=== PATIENT | male | born 1980 | race Two or more races ===

== ENCOUNTER 2017-09-25 08:06 | Day surgery (SDC) | payer OTHER ==
[2017-09-25] VITALS (7 sets, daily range): BP systolic 136–158; BP diastolic 99–106
[~2017-09-25] VITALS: Ht 175.3 cm; Wt 120.2 kg
[2017-09-25] MEDS ORDERED: ASPIR 8181 MG ORAL (09:55)
[2017-09-25] MEDS ORDERED: FUROSEMIDE40 MG ORAL (09:55)
[2017-09-25] MEDS ORDERED: DILTIAZEM ER120 MG PO (09:55)
[2017-09-25] MEDS ORDERED: METFORMIN HCL500 M1 ORAL (09:55)
[2017-09-25] MEDS ORDERED: SILDENAFIL20 MG ORAL (09:55)
[2017-09-25] MEDS ORDERED: GLIPIZIDE5 MG ORAL (09:55)
[2017-09-25] MEDS ORDERED: Propofol 200mg/20ml IV ONE (11:00)
[2017-09-25] MEDS ORDERED: LR 1000ml ONE (11:00)
[2017-09-25] MEDS ORDERED: Lidocaine 1% MPF 10mg/ml 5ml ONE (11:00)
--- NOTE | 2017-09-25 11:04 | Short Stay Surgery H&P ---
History of Present Illness History of Present Illness Chief Complaint Abdominal pains/GERDs HPI Nelson Scanlon is a 37 year old male who was admitted on for Abdominal Pain/GERDs Patient History Allergies: Coded Allergies: No Known Allergies (Unverified , 09/24/17) PAST MEDICAL HISTORY: (1) Hypertension (2) Diabetes (3) CHF (congestive heart failure) (4) Cardiomyopathy Medication History Scheduled Aspirin* (Aspir 81*), 81 MG ORAL DAILY, (Reported) Diltiazem Hcl (Diltiazem Er), 120 MG PO DA, (Reported) Furosemide* (Lasix*), 40 MG ORAL DAILY, (Reported) Glipizide* (Glipizide*), 5 MG ORAL DAILY, (Reported) Metformin Hcl* (Metformin Hcl*), 500 MG ORAL TWICE A DAY, (Reported) Sildenafil Citrate (Sildenafil), 20 MG ORAL DA, (Reported) Review of Systems Cardiovascular: Reports: CHF Respiratory: Reports: no symptoms Skeletal: Reports: trauma Gastrointestinal: Reports: gastro esophageal reflux disease Genitourinary: Reports: no symptoms Neurologic: Reports: no symptoms Endocrine: Reports: diabetes - type 2 Hematologic: Reports: no symptoms Physical Exam Vital Signs Last Vital Signs Date Time Temp Pulse Resp B/P (MAP) Pulse Ox O2 Delivery O2 Flow Rate FiO2 09/25/17 10:10 97.7 102 20 145/106 (119) 97 97.7 09/25/17 09:46 Room Air Skin: normal HENT: normal Heart: normal Lungs: normal Abdomen: abnormal Extremities: normal Genitourinary: normal Plan Plan of Care Upper GI endoscopy and biopsy Preop Interventions None Summary of Findings See the reports Attestation Are the patient's medical conditions optimized for surgery? Attestation Response: yes Ciera Gandhi MD Sep 25, 2017 11:04
--- NOTE | 2017-09-25 11:05 | Pre-Procedure Note/Attestation ---
Pre-Procedure Note/Attestation Complete Prior to Procedure Planned Procedure: left Procedure Narrative: Examination of the upper GI tract via endoscopy Indications for Procedure Pre-Operative Diagnosis: R/O Peptic Ulcer/gastritis Attestation I attest that I discussed the nature of the procedure; its benefits; risks and complications; and alternatives (and the risks and benefits of such alternatives ), prior to the procedure, with the patient (or the patient's legal sales representative livestock). I attest that, if there was a reasonable possibility of needing a blood transfusion, the patient (or the patient's legal sales representative livestock) was given the [facility] standardized written summary, pursuant to the Mauro Lockett Blood Safety Act ([place] Health and Safety Code # 1645, as amended). I attest that I re-evaluated the patient just prior to the surgery and that there has been no change in the patient's H&P, except as documented below: Ciera Gandhi MD Sep 25, 2017 11:05
--- NOTE | 2017-09-25 11:06 | Pre-Procedure Note/Attestation ---
Pre-Procedure Note/Attestation Complete Prior to Procedure Planned Procedure: left Procedure Narrative: Examiantion of the upper GI tract via endoscopy Indications for Procedure Pre-Operative Diagnosis: R/O Peptic Ulcer/gastritis Attestation I attest that I discussed the nature of the procedure; its benefits; risks and complications; and alternatives (and the risks and benefits of such alternatives ), prior to the procedure, with the patient (or the patient's legal field service representative). I attest that, if there was a reasonable possibility of needing a blood transfusion, the patient (or the patient's legal field service representative) was given the [facility] standardized written summary, pursuant to the Mauro Tennille Blood Safety Act ([place] Health and Safety Code # 1645, as amended). I attest that I re-evaluated the patient just prior to the surgery and that there has been no change in the patient's H&P, except as documented below: Ciera Gandhi MD Sep 25, 2017 11:05
[2017-09-25] MEDS ORDERED: LR 1000ml 1,000 ML IVLG SCH (11:07)
[2017-09-25] MEDS ORDERED: Labetalol 5mg/ml 20ml vial IV PRN (11:15)
[2017-09-25] MEDS ORDERED: Midazolam 2mg/2ml Inj IVP PRN (11:15)
[2017-09-25] MEDS ORDERED: fentaNYL 100 mcg/2 mL IV PRN (11:15)
[2017-09-25] MEDS ORDERED: DiphenhydrAMINE 50mg/ml Inj IVP PRN (11:15)
[2017-09-25] MEDS ORDERED: Atropine Inj 1mg/10ml Syr IV PRN (11:15)
--- NOTE | 2017-09-25 11:27 | Endoscopy Procedure Note ---
Endoscopy Procedure Note General Indication for Procedure: Abdominal pains and GERDS Procedures Performed: EGD - Completely normal Upper GI endoscopy. Biopsy was obtained per random from gastric body. Specimen: yes Pt Tolerated Procedure Well: Yes Estimated Blood Loss: none Anesthesia Anesthesiologist: Dr. Arteaga Anesthesia: moderate sedation Medications Medication Given: see anesthesia record Inserted Devices Implant(s) used?: No Quality Quality of Bowel Preparation: Excellent Was there any complications?: No GI Core Measures 50 yrs or older w/o bx or poly: Not Applicable 10yrs. F/U not recommended: Not Applicable If not recommended, why?: Med reason:<3 yrs.: System Reason:<3 yrs.: Ciera Gandhi MD Sep 25, 2017 11:27
--- NOTE | 2017-09-25 11:29 | Discharge Instructions ---
Discharge Instructions Discharge Instructions Follow up with: Visit the doctor after 2 weeks in the office. For Congestive Heart Failure Reminder Report to your physician any weight gain of 5 pounds or more in one week. Ciera Gandhi MD Sep 25, 2017 11:29
--- NOTE | 2017-09-25 11:51 | Endoscopy Procedure Note ---
Endoscopy Procedure Note General Indication for Procedure: Abdominal pains Procedures Performed: colonoscopy - Completely normal total colonoscopy. Specimen: none Pt Tolerated Procedure Well: Yes Estimated Blood Loss: none Anesthesia Anesthesiologist: Dr. Arteaga Anesthesia: moderate sedation Medications Medication Given: see anesthesia record Inserted Devices Implant(s) used?: No Quality Quality of Bowel Preparation: Fair Did scope reach the cecum?: Yes GI Core Measures 50 yrs or older w/o bx or poly: No 10yrs. F/U not recommended: No Med reason:<3 yrs.: System Reason:<3 yrs.: Ciera Gandhi MD Sep 25, 2017 11:51
--- NOTE | 2017-09-25 12:15 | Anethesia Preoperative Eval ---
Anesthesia Pre-op PMH/ROS General Date of Evaluation: Sep 25, 2017 Time of Evaluation: 10:58 Anesthesiologist: rula ASA Score: ASA 4 Mallampati Score Class I : Soft palate, uvula, fauces, pillars visible Class II: Soft palate, uvula, fauces visible Class III: Soft palate, base of uvula visible Class IV: Only hard plate visible Mallampati Classification: Class II Surgeon: pito Diagnosis: abdominal pain, gerd Surgical Procedure: egd/colonoscopy Anesthesia History: none Social History: smoking - nonsmoker Family History: no anesthesia problems Allergies: Coded Allergies: No Known Allergies (Unverified , 09/24/17) Medications: see eMAR Past Medical History Cardiovascular: Reports: HTN, other - cardiomegaly Endocrine: Reports: DM Other: obesity Anesthesia Pre-op Phys. Exam Physician Exam Last Vital Signs Date Time Temp Pulse Resp B/P (MAP) Pulse Ox O2 Delivery O2 Flow Rate FiO2 09/25/17 12:07 91 20 141/100 100 Simple Mask 8 09/25/17 11:57 97 97.0 Constitutional: NAD Neurologic: CN 2-12 intact Cardiovascular: RRR Respiratory: CTA Gastrointestinal: S/NT/ND Airway Exam Mallampati Score: Class II MO: full Neck: short TMD: 2fb ROM: full Teeth: intact Anesthesia Pre-op A/P Risk Assessment & Plan Assessment: asa4 Plan: mac Status Change Before Surgery: No Pre-Antibiotics Drug: Luzmaria Buckley MD Sep 25, 2017 12:15
--- NOTE | 2017-09-25 12:16 | Immediate Post-Op Evaluation ---
Immediate Post-Op Evalulation Immediate Post-Op Evalulation Procedure: egd/colonoscopy/bx Date of Evaluation: Sep 25, 2017 Time of Evaluation: 12:09 IV Fluids: 550ml lr Blood Products: none Estimated Blood Loss: negligible Blood Pressure Systolic: 142 Blood Pressure Diastolic: 104 Pulse Rate: 94 Respiratory Rate: 18 O2 Sat by Pulse Oximetry: 97 Temperature (Fahrenheit): 97.8 Pain Score (1-10): 0 Nausea: No Vomiting: No Complications none Patient Status: awake, reacts, patent Hydration Status: adequate Drug: Luzmaria Buckley MD Sep 25, 2017 12:16
--- NOTE | 2017-09-25 12:17 | 48 Hour Post Anesthesia Eval ---
Post Anesthesia Evaluation Procedure: egd/colonoscopy/bx Date of Evaluation: Sep 25, 2017 Time of Evaluation: 12:16 Blood Pressure Systolic: 145 0: 99 Pulse Rate: 95 Respiratory Rate: 18 Temperature (Fahrenheit): 97.8 O2 Sat by Pulse Oximetry: 97 Airway: patent Nausea: No Vomiting: No Pain Intensity: 0 Hydration Status: adequate Cardiopulmonary Status: stable Mental Status/LOC: patient returned to baseline Post-Anesthesia Complications: none Follow-up care needed: N/A Luzmaria Rollins MD Sep 25, 2017 12:16
--- NOTE | 2017-09-25 17:30 | Operative Note - Dictated ---
DATE OF OPERATION: 09/25/2017 PROCEDURE: Esophagogastroduodenoscopy with biopsy. SURGEON: Ciera Gandhi M.D. PREOPERATIVE DIAGNOSIS: Abdominal pain, history of gastroesophageal reflux, rule out peptic ulcer disease. POSTOPERATIVE DIAGNOSIS: Completely normal upper GI endoscopy. Biopsy was taken per random from gastric body. MEDICATION USED: Per Dr. Arteaga, anesthesiologist. INSTRUMENT: GIF Olympus upper GI video endoscope. DESCRIPTION OF PROCEDURE: The patient after arriving endoscopy unit, was told about risks and benefits of the procedure, which he accepted and signed informed consent. He was then put on the left lateral decubitus position. After adequate IV sedation, the scope was gently passed through the cricopharyngeal area, was lodged into the upper esophagus, and gradually advanced towards gastroesophageal junction. The entire length of the esophagus looked normal without any pathology. GE junction also looked normal without any evidence of hiatal hernia or Vinson's. At this time, the scope was advanced into the stomach. Gastric cavity was distended. Gastric fold came into view, which looked normal. There was no any evidence of ulceration, inflammatory process, tumors, polyps or bleeding etc. Gradually, the areas of the fundus and the body and the antrum were examined carefully and finding no abnormalities a random biopsy from gastric body was obtained and subsequently, the scope was passed through the pylorus. First and second portion of duodenum were also evaluated that they looked normal. At this time, after obtaining biopsy. Procedure was terminated. The patient tolerated the procedure well and left the endoscopy room in good condition. Ciera Gandhi M.D. DR: LUIS JOB#: [id number] CC:
--- NOTE | 2017-09-25 17:30 | Operative Note - Dictated ---
DATE OF OPERATION: 09/25/2017 SURGEON: Ciera Gandhi M.D. PROCEDURE: Total colonoscopy. PREOPERATIVE DIAGNOSIS: Generalized abdominal pain. POSTOPERATIVE DIAGNOSIS: Completely normal total colonoscopy. MEDICATION USED: Per Dr. Arteaga, anesthesiologist. INSTRUMENT: GIF Olympus videocolonoscope. DESCRIPTION OF PROCEDURE: The patient after arriving endoscopy unit, was told about risks and benefits of the procedure, which he accepted and signed informed consent. He was then put on the left lateral decubitus position. After adequate IV sedation, the scope was gently passed through the anal area and examination of this section revealed completely normal colon and rectum. At this point, the scope was passed through rather redundant left colon reaching to the splenic flexure, transverse colon, and right ascending colon all the way to the base of the cecum. There was no any pathological finding such as tumors, polyps, inflammatory process, stricture, etc found through the entire length of the colon as examined. The colon cleanup was fair and there was still liquidy stool along the colon. Finally, upon reaching to the base of the cecum within 6 minutes, the scope was gradually pulled out and no other pathology was found and the procedure was terminated. The patient tolerated the procedure well and left the endoscopy room in good condition. Ciera Gandhi M.D. DR: VAN JOB#: [id number] CC:
--- NOTE | 2017-09-25 17:30 | Pre-op HX & Phy Repo 2 SIG ---
DATE OF ADMISSION: 09/25/2017 HISTORY OF PRESENT ILLNESS: The patient is a 37-year-old gentleman, who is being seen prior to undergoing the procedure for upper GI endoscopy that he has been scheduled for to receive for evaluation of his gastrointestinal conditions that he has been suffering subsequent to his work injury. The applicant basically reports that he has been experiencing pain over the upper part of the abdomen associated with other moderate gastroesophageal acid reflux. He also does complain of the pain over the epigastric area and also over different parts of the abdomen, which occurs intermittently. There has been no history of hematemesis, melena, or hematochezia. However as I mentioned, the applicant complains of significant amount of gastroesophageal reflux, which is consistent with gastroesophageal reflux disease. He reports that in the past he has never been prescribed any acids or suppressor such as PPI or H2 blockers to control his acid reflux. The applicant also does suffer from significant amount of weight consistent with morbid obesity in the past and he has had history of multiple medical conditions such as cardiomyopathy, hypertension, and diabetes. He denied having been treated with any nonsteroidal anti-inflammatory agents after his work accident. He denies having a major constipation or diarrhea at this time. Also, there is no history of Helicobacter pylori infection diagnosed in the past for him. 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 He has been diagnosed with morbid obesity as I mentioned in the past as he was seen by multiple physicians. The applicant was suffering from the injuries and pains over his hand and wrist and in the past, Dr. Valdez diagnosed the applicant was suffering from irritable bowel syndrome with major constipation. PAST MEDICAL HISTORY: Significant as the patient suffers from hypertension, diabetes mellitus, carpal tunnel syndrome, congestive heart failure, and cardiomyopathy. PAST SURGICAL HISTORY: None significant. MEDICATIONS: On multiple and basically, they are metformin and antihypertensive medications that are not available at this time. ALLERGIES: None. HABITS: He does not drink alcohol, but he used to smoke cigarettes 1 pack per week for 2 years, but he has stopped them. REVIEW OF SYSTEMS: Basically history of present illness physical exam reveals an alert, oriented, very pleasant gentleman, who is significantly obese. He is in no acute distress and answers the questions quite properly. PHYSICAL EXAMINATION: VITAL SIGNS: All stable except high blood pressure 182/120 at this time. GENERAL: Alert and well-oriented gentleman, does not seem to be in any acute distress. HEENT: Normocephalic. Pupils are equal in size and reactive to light and accommodation. No visible jaundice. Buccal cavity, tongue midline, well hydrated. No ulcers. NECK: Supple. No JVD, thyromegaly, or adenopathy. CHEST: Clear to auscultation and percussion. No rales or rhonchi. HEART: S1 and S2 normal. Regular rhythm. No gallops or murmur. ABDOMEN: Soft, but obese. There is areas of tenderness all over the abdomen particularly over the epigastric area. No palpable mass. No organomegaly. EXTREMITIES: Unremarkable. CENTRAL NERVOUS SYSTEM: Unremarkable. PREOPERATIVE IMPRESSION: 1. Abdominal pain of uncertain etiology, rule out irritable bowel syndrome, IBS aggravated by stress related to work accident. 2. Epigastric pain and significant heartburn of uncertain etiology, rule out anxiety and stress-induced gastroesophageal acid reflux subsequent to work injury. 3. Hypertension, morbid obesity, diabetes, history of congestive heart failure, and cardiomyopathy. 4. Anxiety and stress. RECOMMENDATION: The applicant seems to be stable at this time to undergo the procedure of upper GI endoscopy for which he has been scheduled. He understands the risks and benefits and will sign the consent. Said Tracey Gandhi DR: VAN JOB#: [id number] CC:
[2017-09-26 08:30] VITALS: BP 145/99
== END 2017-09-25 13:00 | disposition home or self-care (01) ==
LOC: GAS 08:06
DX: R10.84 Generalized abdominal pain (principal); K29.70 Gastritis, unspecified, without bleeding; B96.81 Helicobacter pylori [H. pylori] as the cause of diseases classified elsewhere; E11.9 Type 2 diabetes mellitus without complications; Z79.84 Long term (current) use of oral hypoglycemic drugs; I11.0 Hypertensive heart disease with heart failure; I50.9 Heart failure, unspecified; I42.9 Cardiomyopathy, unspecified; E66.01 Morbid (severe) obesity due to excess calories; G56.00 Carpal tunnel syndrome, unspecified upper limb; F41.9 Anxiety disorder, unspecified; F43.9 Reaction to severe stress, unspecified; Z87.891 Personal history of nicotine dependence; Z79.82 Long term (current) use of aspirin
CPT/HCPCS: 43239; 45378; 82962; J2704; J7120; 94003; 94150